=== PATIENT | female | born 1995 | race Caucasian/White ===

== ENCOUNTER 2020-03-19 13:17 | Emergency (ER) | payer OTHER ==
[2020-03-19 13:24] VITALS: BP 110/85
--- NOTE | 2020-03-19 13:46 | ED Physician Documentation ---
PD HPI UPPER EXT INJURY - Stated complaint Stated Complaint: LT HAND LAC - Chief complaint Chief Complaint: Laceration - History obtained from History obtained from: Patient - History of Present Illness Location: Left, Hand Type of injury: Laceration (cutting an avocado and the knife slipped, causing puncture laceration to left ulnar side hand in hypothenar muscles area. bled briskly initially and she applied direct pressure and here for evaluation. No feeling of numbness nor weakness in little/ring finger. 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) Timing - details: Abrupt onset Associated symptoms: No: Weakness, Numbness Similar symptoms before: Has not had sx before Review of Systems Skin: reports: Laceration (s) Neurologic: denies: Focal weakness, Numbness, Near syncope PD PAST MEDICAL HISTORY - Past Medical History Past Medical History: No - Past Surgical History Past Surgical History: No - Allergies Allergies/Adverse Reactions: Allergies Allergy/AdvReac Type Severity Reaction Status Date / Time Penicillins Allergy Unknown Verified 03/19/20 13:21 - Social History Does the pt smoke?: No Smoking Status: Never smoker Does the pt drink ETOH?: No Does the pt have substance abuse?: No - Immunizations Immunizations are current?: No Immunizations: TDAP >10years/unknown - POLST Patient has POLST: No PD ED PE NORMAL - Vitals Vital signs reviewed: Yes - General General: Alert and oriented X 3, No acute distress, Well developed/nourished - Derm Derm: Normal color, Warm and dry - Extremities Extremities: Other (left hand with 1.3 cm laceration without FB nor active bleeding on ulnar side hand in area of hypothenar muscles. Good sensation and movement of little finger and ring finger. ) - Neuro Neuro: No motor deficit, No sensory deficit Results - Vitals Vitals: Vital Signs - 24 hr 03/19/20 13:21 Temperature 36.5 C Heart Rate 95 Respiratory 14 Rate Blood Pressure 110/85 H O2 Saturation 96 Oxygen O2 Source Room air Procedures - Laceration (location) left hand hypothenar area Length in cm: 1.3 Wound type: Linear, Into subcut fat, Clean Neurovascular status: Sensory intact, Motor intact Wound Preparation: Wound explored, To the base. No: FB identified Skin layer closure: Dermabond, Steri strips Other: Patient tolerated well, Dressing applied, Tetanus UTD PD MEDICAL DECISION MAKING - ED course Complexity details: considered differential (small lac and no bleeding, edges approximated without tension. Seems amenable to tape and glue. ), d/w patient Departure - Departure Disposition: 01 Home, Self Care Clinical Impression: Hand laceration Qualifiers: Encounter type: initial encounter Foreign body presence: without foreign body Laterality: left Qualified Code(s): S61.412A - Laceration without foreign body of left hand, initial encounter Condition: Stable Record reviewed to determine appropriate education?: Yes Instructions: ED Laceration Ext Skin Glue Follow-Up: QIANA CHANDLER MD [Primary Care Provider] - Comments: Keep the area clean and dry. Cover with a bandage as needed for protecting the area. Allow the Steri-Strips and glue to fall off on their own after several days. Recheck if signs of infection. Tylenol ibuprofen if needed for pains. Discharge Date/Time: 03/19/20 14:17
== END 2020-03-19 14:17 | disposition home or self-care (01) ==
LOC: ED 13:17
DX: S61.412A Laceration without foreign body of left hand, initial encounter (principal); W26.0XXA Contact with knife, initial encounter; Y93.G1 Activity, food preparation and clean up; Y99.8 Other external cause status
CPT/HCPCS: 12001; 99282

== ENCOUNTER 2020-10-12 04:48 | Emergency (ER) | payer OTHER ==
[2020-10-12] MEDS ORDERED: ONDANSETRON 4 MG/2 ML VIAL IVP STA (05:23)
[2020-10-12] MEDS ORDERED: FAMOTIDINE 20 MG/2 ML VIAL IVP STA (05:23)
[2020-10-12] MEDS ORDERED: LACTATED RINGERS 1,000 ML IV STA (05:24)
[2020-10-12] MEDS ORDERED: SODIUM CHLORIDE 0.9% 1,000 ML IV STA (05:26)
--- NOTE | 2020-10-12 05:29 | ED Physician Documentation ---
PD HPI ABD PAIN - Stated complaint Stated Complaint: N/V/D - Chief complaint Chief Complaint: Abd Pain - History obtained from History obtained from: Patient - Additional information Additional information: 25-year-old woman with No past medical history presents with 24 hours of nonbloody nonbilious nausea vomiting and nonbloody diarrhea culminating in inability to tolerate p.o. this evening. Patient states that she has not slept at all last night. She also endorses associated epigastric abdominal pain that is mild, worse with vomiting, radiating to the back, aching quality, constant. Denies urinary symptoms or fever. Denies sick contacts recent travel or Covid exposure. Review of Systems Ten Systems: 10 systems reviewed and negative Constitutional: reports: Myalgias. 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 : None HEENT: None Psych: None Musculoskeletal: None Derm: None - Past Surgical History Past Surgical History: No - Present Medications Home Medications: Ambulatory Orders Medication Instructions Recorded Confirmed Ondansetron Odt [Zofran Odt] 4 mg TL Q6H PRN #10 tablet 10/12/20 - Allergies Allergies/Adverse Reactions: Allergies Allergy/AdvReac Type Severity Reaction Status Date / Time Penicillins Allergy Unknown Verified 10/12/20 04:56 - Social History Does the pt smoke?: No Smoking Status: Never smoker Does the pt drink ETOH?: No Does the pt have substance abuse?: No - Immunizations Immunizations are current?: No Immunizations: TDAP >10years/unknown - POLST Patient has POLST: No PD ED PE NORMAL - Vitals Vital signs reviewed: Yes - General General: Alert and oriented X 3 - HEENT HEENT: Atraumatic, PERRL, EOMI - Neck Neck: Supple, no meningeal sign - Cardiac Cardiac: RRR - Respiratory Respiratory: No respiratory distress, Clear bilaterally - Abdomen Abdomen: Normal bowel sounds, Non tender, Non distended - Female Female : Deferred - Rectal Rectal: Deferred - Back Back: No CVA TTP - Derm Derm: Normal color, Warm and dry - Extremities Extremities: No deformity - Neuro Neuro: Alert and oriented X 3 - Psych Psych: Normal mood, Normal affect Results - Vitals Vitals: Vital Signs - 24 hr 10/12/20 10/12/20 10/12/20 04:55 05:08 05:36 Temperature 36.8 C Heart Rate 68 61 61 Respiratory 17 16 18 Rate Blood Pressure 141/69 H 141/89 H 120/69 O2 Saturation 98 100 100 10/12/20 10/12/20 05:54 06:32 Temperature Heart Rate 58 L Respiratory 15 16 Rate Blood Pressure 124/87 H O2 Saturation 100 Oxygen O2 Source Room air - Labs Labs: Laboratory Tests 10/12/20 10/12/20 10/12/20 05:00 05:00 05:00 WBC 10.2 RBC 4.81 Hgb 13.6 Hct 41.7 MCV 86.7 MCH 28.3 MCHC 32.6 RDW 12.8 Plt Count 421 MPV 10.5 Neut # (Auto) 8.3 H Lymph # (Auto) 1.2 L Metcalfe # (Auto) 0.5 Eos # (Auto) 0.1 Baso # (Auto) 0.1 Absolute Nucleated RBC 0.00 Nucleated RBC % 0.0 Sodium 139 Potassium 3.4 L Chloride 102 Carbon Dioxide 25 Anion Gap 12.0 BUN 12 Creatinine 0.7 Estimated GFR (MDRD) 100 Glucose 136 H Calcium 9.7 Total Bilirubin 0.9 AST 18 ALT 14 Alkaline Phosphatase 64 Total Protein 7.8 Albumin 4.6 Globulin 3.2 Albumin/Globulin Ratio 1.4 Lipase 22 Serum HCG, Qual NEGATIVE PD MEDICAL DECISION MAKING - ED course Complexity details: d/w patient ED course: 25-year-old woman presents with nausea, vomiting, and diarrhea concerning for acute viral gastroenteritis. Her abdomen is soft and nontender and she is well- appearing on initial examination. Will provide symptomatic care, obtain basic labs, and reevaluate after intervention. Symptoms resolved status post symptomatic care. Patient feels much better and would like to go home. Return precautions given. Follow-up PMD. Departure - Departure Disposition: 01 Home, Self Care Clinical Impression: Vomiting, Abdominal pain, Diarrhea Condition: Good Instructions: ED Diarhhea Viral Ch Prescriptions: Ondansetron Odt [Zofran Odt] 4 mg TL Q6H PRN #10 tablet PRN Reason: Nausea / Vomiting Comments: You have been seen in the emergency department for a viral stomach bug. Stay home and get lots of rest, hydrate. Return to the ED for any new or worsening symptoms. Follow-up with your primary doctor
[2020-10-12 05:40] LABS: BASOPHILS # (AUTO) 0.1 10^3/uL (0.0-0.1); BASOPHILS % (AUTO) 0.8 %; EOSINOPHILS # (AUTO) 0.1 10^3/uL (0.0-0.7); EOSINOPHILS % (AUTO) 0.5 %; HGB - HEMOGLOBIN 13.6 g/dL (12.0-16.0); LYMPHOCYTES # (AUTO) 1.2 10^3/uL (1.5-3.5); LYMPHOCYTES % (AUTO) 12.1 %; MEAN CORPUSCULAR HEMOGLOBIN 28.3 pg (27.0-31.0); MEAN CORPUSCULAR HGB CONC 32.6 g/dL (32.0-36.0); MEAN CORPUSCULAR VOLUME 86.7 fL (81.0-99.0); MEAN PLATELET VOLUME 10.5 fL (7.9-10.8); MONOCYTES # (AUTO) 0.5 10^3/uL (0.0-1.0); MONOCYTES % (AUTO) 4.4 %; NEUTROPHILS # (AUTO) 8.3 10^3/uL (1.5-6.6); NEUTROPHILS % (AUTO) 81.9 %; PLT - PLATELET COUNT 421 10^3/uL (130-450); RED BLOOD COUNT 4.81 10^6/uL (4.20-5.40); RED CELL DISTRIBUTION WIDTH 12.8 % (12.0-15.0); WHITE BLOOD COUNT 10.2 x10^3/uL (4.8-10.8)
[2020-10-12 05:43] LABS: ALBUMIN 4.6 g/dL (3.2-5.5); ALBUMIN/GLOBULIN RATIO 1.4 (1.0-2.2); BILIRUBIN,TOTAL 0.9 mg/dL (0.2-1.0); CALCIUM 9.7 mg/dL (8.5-10.3); CREATININE 0.7 mg/dL (0.4-1.0); TOTAL PROTEIN 7.8 g/dL (6.7-8.2)
[2020-10-12] MEDS ORDERED: MAG HYDROX/AL HYDROX/SIMETH 30 ML UDC PO STA (06:07)
[2020-10-12] MEDS ORDERED: ACETAMINOPHEN 325 MG TABLET PO STA (06:07)
[2020-10-12 06:23] LABS: HCG,QUALITATIVE BLOOD NEGATIVE
[2020-10-12 07:01] VITALS: BP 130/89
== END 2020-10-12 07:04 | disposition home or self-care (01) ==
LOC: ED 04:48
DX: A08.4 Viral intestinal infection, unspecified (principal)
CPT/HCPCS: 36415; 80053; 83690; 84703; 85025; 96374; 99283; 99284; A9270; J7120; 81025

== ENCOUNTER 2020-11-09 10:43 | Outpatient (CLI) | payer OTHER | END 2020-11-09 10:44 | disposition critical access hospital (66) | LOC: EMS 10:43 | PROVIDERS: ATTEND Surgery | DX: R41.82 Altered mental status, unspecified (principal); R51.9 Headache, unspecified; V47.5XXA Car driver injured in collision with fixed or stationary object in traffic accident, initial encounter; Y92.414 Local residential or business street as the place of occurrence of the external cause | CPT/HCPCS: A0425; A0427 ==

== ENCOUNTER 2020-11-09 10:57 | Emergency (ER) | payer OTHER ==
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
[2020-11-09 12:44] VITALS: BP 133/74
== END 2020-11-09 12:43 | disposition home or self-care (01) ==
LOC: EDUNIT# → ED 10:57
DX: Z04.1 Encounter for examination and observation following transport accident (principal); V53.5XXA Driver of pick-up truck or van injured in collision with car, pick-up truck or van in traffic accident, initial encounter; W22.11XA Striking against or struck by driver side automobile airbag, initial encounter; Y92.410 Unspecified street and highway as the place of occurrence of the external cause; F10.920 Alcohol use, unspecified with intoxication, uncomplicated; Y90.8 Blood alcohol level of 240 mg/100 ml or more
CPT/HCPCS: 36415; 80320; 99284

== ENCOUNTER 2021-01-07 03:49 | Emergency (ER) | payer OTHER ==
--- NOTE | 2021-01-07 04:06 | ED Physician Documentation ---
PD HPI HEENT - Stated complaint Stated Complaint: FEVER/SORE THROAT - Chief complaint Chief Complaint: Fever - History obtained from History obtained from: Patient - History of Present Illness Timing - onset: Yesterday Timing - details: Gradual onset Pain level now: 3 Location: Throat Improves: Nothing Worsens: Swalllowing Associated symptoms: Fever (Tmax 101 at home). No: Trismus, Unable to swallow, Facial swelling, Headache, Cough Recently seen: Not recently seen - Additional information Additional information: c/o sore throat and fever since yesterday morning with Tmax at home of 101. 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 : None HEENT: None Psych: None Musculoskeletal: None Derm: None - Past Surgical History Past Surgical History: No - Present Medications Home Medications: Ambulatory Orders Medication Instructions Recorded Confirmed Ondansetron Odt [Zofran Odt] 4 mg TL Q6H PRN #10 tablet 10/12/20 01/07/21 clindamycin HCL [Clindamycin HCl] 300 mg PO TID #29 01/07/21 - Allergies Allergies/Adverse Reactions: Allergies Allergy/AdvReac Type Severity Reaction Status Date / Time Penicillins Allergy Unknown Verified 01/07/21 04:07 erythromycin base AdvReac Emesis Verified 01/07/21 04:08 - Social History Does the pt smoke?: No Smoking Status: Never smoker Does the pt drink ETOH?: No Does the pt have substance abuse?: No - Immunizations Immunizations are current?: No Immunizations: TDAP >10years/unknown - POLST Patient has POLST: No PD ED PE NORMAL - Vitals Vital signs reviewed: Yes - General General: Alert and oriented X 3, No acute distress, Well developed/nourished - HEENT HEENT: Moist mucous membranes PD ED PE EXPANDED - HEENT HEENT: Pharyngeal erythema (mild/moderate posterior o/p erythema), Swollen t onsils (R>L), Tonsillar exudate (trace bilateral (R>L) exudate) Results - Vitals Vitals: Vital Signs - 24 hr 01/07/21 04:00 Temperature 38.2 C H Heart Rate 110 H Respiratory 16 Rate Blood Pressure 117/72 O2 Saturation 96 Oxygen O2 Source Room air - Labs Labs: Laboratory Tests 01/07/21 04:08 Group A Strep Rapid POSITIVE H PD MEDICAL DECISION MAKING - ED course Complexity details: reviewed results, re-evaluated patient, considered differential, d/w patient ED course: rapid strep (+). patient says she is allertgic to penicillin and erythromycin although she believes she has had clindamycin in the past and thus this is prescribed with first dose in ED. She is also given tylenol (has fever in ED, last dose of antipyretic was naproxen over 6 hours ago), and one-time dose of 10mg PO decadron Departure - Departure Disposition: 01 Home, Self Care Clinical Impression: Strep throat Condition: Good Instructions: ED Strep Pharyngitis Conf Follow-Up: QIANA CHANDLER MD [Primary Care Provider] - (3-5 days if not improving) Prescriptions: clindamycin HCL [Clindamycin HCl] 300 mg PO TID #29 Forms: Activity restrictions Discharge Date/Time: 01/07/21 05:06
[2021-01-07 04:07] VITALS: BP 117/72
[2021-01-07] MEDS ORDERED: CHERRY SYRUP 10 ML UDC PO ONE (04:11)
[2021-01-07] MEDS ORDERED: DEXAMETHASONE 10 MG/ML VIAL PO STA (04:11)
[2021-01-07] MEDS ORDERED: ACETAMINOPHEN 325 MG TABLET PO STA (04:12)
[2021-01-07 04:28] LABS: RAPID STREP SCREEN POSITIVE (Negative)
[2021-01-07] MEDS ORDERED: CLINDAMYCIN 150 MG CAPSULE PO STA (04:59)
== END 2021-01-07 05:06 | disposition home or self-care (01) ==
LOC: ED 03:49
DX: J02.0 Streptococcal pharyngitis (principal); Z88.0 Allergy status to penicillin; Z88.1 Allergy status to other antibiotic agents
CPT/HCPCS: 87430; 99283; A9270